=== PATIENT | female | born 1945 | race Caucasian/White ===

== ENCOUNTER → 2017-02-25 | Outpatient (CLI) | payer OTHER, MEDICARE | LOC: BMCIMAGING 10:26 | PROVIDERS: ATTEND Internal Medicine | DX: Z12.31 Encounter for screening mammogram for malignant neoplasm of breast (principal) | CPT/HCPCS: G0202 ==

== ENCOUNTER → 2018-03-26 | Outpatient (CLI) | payer OTHER, MEDICARE | LOC: BMCIMAGING 08:49 | PROVIDERS: ATTEND Internal Medicine | DX: Z12.31 Encounter for screening mammogram for malignant neoplasm of breast (principal) ==

== ENCOUNTER → 2018-04-05 | Outpatient (CLI) | payer OTHER, MEDICARE | LOC: CIMAGING 12:46 | PROVIDERS: ATTEND Internal Medicine | DX: R92.0 Mammographic microcalcification found on diagnostic imaging of breast (principal); Z80.3 Family history of malignant neoplasm of breast ==

== ENCOUNTER → 2018-06-09 | Outpatient (CLI) | payer OTHER, MEDICARE | LOC: BMCIMAGING 10:16 | PROVIDERS: ATTEND Internal Medicine | DX: Z13.820 Encounter for screening for osteoporosis (principal); M85.89 Other specified disorders of bone density and structure, multiple sites; E78.5 Hyperlipidemia, unspecified; R03.0 Elevated blood-pressure reading, without diagnosis of hypertension; Z78.0 Asymptomatic menopausal state ==

== ENCOUNTER → 2018-08-06 | Outpatient (CLI) | payer OTHER, MEDICARE | LOC: CIMAGING 09:46 | PROVIDERS: ATTEND Internal Medicine | DX: M53.2X2 Spinal instabilities, cervical region (principal) | CPT/HCPCS: 72050-PO ==

== ENCOUNTER → 2018-11-15 | Outpatient (CLI) | payer OTHER, MEDICARE | LOC: FIMAGING 12:46 | PROVIDERS: ATTEND Internal Medicine | DX: R92.0 Mammographic microcalcification found on diagnostic imaging of breast (principal) ==